=== PATIENT | female | born 1995 | race Caucasian/White ===

== ENCOUNTER 2017-05-05 09:03 | Inpatient (IN) | payer OTHER ==
[~2017-05-05] VITALS: Ht 167.6 cm; Wt 91.8 kg
[2017-05-05 09:48] LABS: BASOPHIL % 0.5 % (0-2); PLATELET COUNT 280 x10^3mcL (130-400); RED CELL DISTRIBUTION WIDTH 12.3 % (11.5-14.5)
[2017-05-05 09:56] LABS: CALCIUM 8.9 mg/dL (8.5-10.1); CHLORIDE SERUM 102 mmol/L (98-107); CREATININE SERUM 0.7 mg/dL (0.6-1.0); GFR1 > 60 mL/min; GLUCOSE SERUM 94 mg/dL (74-106); POTASSIUM SERUM 3.8 mmol/L (3.5-5.1); SODIUM SERUM 137 mmol/L (136-145)
[2017-05-05 10:00] LABS: ALBUMIN 3.6 g/dL (3.4-5.0); ALKALINE PHOSPHATASE 89 U/L (46-116); ALT/SGPT 30 U/L (14-59); AMYLASE 64 U/L (25-115); AST/SGOT 24 U/L (15-37); BILIRUBIN TOTAL 1.1 mg/dL (0.20-1.00); LIPASE 130 IU/L (73-393)
[2017-05-05 11:01] LABS: UA SPECIFIC GRAVITY 1.015 (1.005-1.035); microscopic required? YES; urine erythrocyte 1+ (NEGATIVE)
[2017-05-05 12:56] VITALS: BP 125/72
[2017-05-05 13:16] LABS: T3 TOTAL 1.1 ng/mL
[2017-05-05 13:21] LABS: CHOLESTEROL/HDL RATIO 5.6; MAGNESIUM 2.1 mg/dL (1.8-2.4)
[2017-05-05 14:06] LABS: FREE T4 1.18 ng/dL (0.76-1.46); FREE THYROXINE INDEX 3.5 ug/dL (1.4-4.5); T4(THYROXINE) 10.3 ug/dL (4.7-13.3)
[2017-05-05 14:56] VITALS: Ht 167.6 cm; Wt 91.8 kg
[2017-05-05 16:54] VITALS: BP 121/66
[2017-05-05 21:05] VITALS: BP 126/69
[2017-05-06 05:44] VITALS: BP 98/55
[2017-05-06 06:15] LABS: BASOPHIL % 0.3 % (0-2); PLATELET COUNT 259 x10^3mcL (130-400); RED CELL DISTRIBUTION WIDTH 12.2 % (11.5-14.5)
[2017-05-06 06:23] LABS: CALCIUM 8.5 mg/dL (8.5-10.1); CARBON DIOXIDE 26.6 mmol/L (21-32); CHLORIDE SERUM 106 mmol/L (98-107); CREATININE SERUM 0.7 mg/dL (0.6-1.0); GFR1 > 60 mL/min; GLUCOSE SERUM 83 mg/dL (74-106); PHOSPHOROUS 3.8 mg/dL (2.5-4.9); POTASSIUM SERUM 4.4 mmol/L (3.5-5.1); SODIUM SERUM 140 mmol/L (136-145)
[2017-05-06 09:48] VITALS: BP 104/63
[2017-05-06 12:59] VITALS: BP 101/61
[2017-05-06] MEDS ORDERED: LEVAQUIN750 MG PO (15:06)
[2017-05-06] MEDS ORDERED: BD LACTINEX1.4 MG PO (15:07)
[2017-05-06] MEDS ORDERED: VITAMIN C PURE500 MG PO (15:08)
[2017-05-06] MEDS ORDERED: IBUPROFEN400 MG PO (15:11)
[2017-05-06 15:50] VITALS: BP 101/61
== END 2017-05-06 16:36 | disposition home or self-care (01) | DRG 263 ==
LOC: ED 09:03 → DU 11:16 → MU 05-06 13:31
PROVIDERS: Emergency Medicine; Surgery; ADMIT Family Medicine
PROC: 0FT44ZZ Resection of Gallbladder, Percutaneous Endoscopic Approach (ICD-10-PCS; principal; 2017-05-05 13:30)
DX: K80.00 Calculus of gallbladder with acute cholecystitis without obstruction (principal); K76.0 Fatty (change of) liver, not elsewhere classified; K82.1 Hydrops of gallbladder; N39.0 Urinary tract infection, site not specified; E78.2 Mixed hyperlipidemia; E66.9 Obesity, unspecified; Z68.32 Body mass index [BMI] 32.0-32.9, adult
CPT/HCPCS: 83880; 84439; J0330; J1170; J1644; J1885; J1956; J2175; J2250; J2405; J2543; J3010; J3490; J7030; Q0092

== ENCOUNTER 2018-03-08 18:37 | Emergency (ER) | payer OTHER ==
[~2018-03-08] VITALS: Ht 167.6 cm; Wt 91.6 kg
[~2018-03-08 18:37] MED LIST: BD LACTINEX1.4 MG PO; IBUPROFEN400 MG PO; LEVAQUIN750 MG PO; VITAMIN C PURE500 MG PO
[2018-03-08 18:40] VITALS: Ht 167.6 cm; Wt 91.6 kg
[2018-03-08 20:08] VITALS: BP 132/88
[2018-03-08 20:24] LABS: UA SPECIFIC GRAVITY 1.025 (1.005-1.035); microscopic required? YES; urine erythrocyte TRACE (NEGATIVE)
== END 2018-03-08 20:08 | disposition home or self-care (01) ==
LOC: ED 18:37
PROVIDERS: Emergency Medicine
DX: N39.0 Urinary tract infection, site not specified (principal)

== ENCOUNTER 2018-08-30 08:19 | Emergency (ER) | payer SELFPAY ==
[~2018-08-30] VITALS: Ht 165.1 cm; Wt 95.7 kg
[2018-08-30 08:28] VITALS: BP 98/70; Ht 165.1 cm; Wt 95.7 kg
== END 2018-08-30 09:19 | disposition home or self-care (01) ==
LOC: ED 08:19
DX: L30.1 Dyshidrosis [pompholyx] (principal); E66.9 Obesity, unspecified; Z68.35 Body mass index [BMI] 35.0-35.9, adult; Z90.49 Acquired absence of other specified parts of digestive tract

== ENCOUNTER 2019-06-03 15:41 | Emergency (ER) | payer SELFPAY ==
[~2019-06-03] VITALS: Ht 167.6 cm; Wt 96.6 kg
[2019-06-03 16:15] VITALS: BP 123/84; Ht 167.6 cm; Wt 96.6 kg
== END 2019-06-03 16:22 | disposition home or self-care (01) ==
LOC: ED 15:41
DX: J32.2 Chronic ethmoidal sinusitis (principal)

== ENCOUNTER 2019-08-10 16:04 | Emergency (ER) | payer OTHER ==
[~2019-08-10] VITALS: Ht 167.6 cm; Wt 97.1 kg
[2019-08-10 16:09] VITALS: BP 137/95; Ht 167.6 cm; Wt 97.1 kg
== END 2019-08-10 17:04 | disposition home or self-care (01) ==
LOC: ED 16:04
DX: S61.210A Laceration without foreign body of right index finger without damage to nail, initial encounter (principal); W26.0XXA Contact with knife, initial encounter; Y93.89 Activity, other specified; Y92.89 Other specified places as the place of occurrence of the external cause; Y99.0 Civilian activity done for income or pay
CPT/HCPCS: 90715; J2001

== ENCOUNTER 2019-12-07 18:05 | Emergency (ER) | payer OTHER ==
[~2019-12-07] VITALS: Ht 167.6 cm; Wt 96.6 kg
[2019-12-07 18:14] VITALS: Ht 167.6 cm; Wt 96.6 kg
[2019-12-07 19:13] VITALS: BP 120/79
== END 2019-12-07 19:13 | disposition home or self-care (01) ==
LOC: ED 18:05
DX: L30.9 Dermatitis, unspecified (principal)